=== PATIENT | male | born 2000 | race Hispanic/Latino ===

== ENCOUNTER 2020-03-03 12:22 | Emergency (ER) | payer OTHER ==
[2020-03-03 18:12] LABS: SARS-CoV-2 MS2 Positive; SARS-CoV-2 N Gene Positive; SARS-CoV-2 S Gene Positive; SARS-CoV-2 orf1ab Positive
== END 2020-03-03 13:01 | disposition home or self-care (01) ==
LOC: ERS 12:22
DX: U07.1 COVID-19 (principal); J45.909 Unspecified asthma, uncomplicated; Z87.891 Personal history of nicotine dependence
CPT/HCPCS: 87635; 99283; U0003

== ENCOUNTER 2020-08-30 13:36 | Emergency (ER) | payer OTHER, SELFPAY ==
[2020-08-30 22:33] LABS: SARS-CoV-2 MS2 Positive; SARS-CoV-2 N Gene Negative; SARS-CoV-2 S Gene Negative; SARS-CoV-2 by NAA Not Detected (NotDetected); SARS-CoV-2 orf1ab Negative
== END 2020-08-30 14:50 | disposition home or self-care (01) ==
LOC: ERS 13:36
DX: H60.92 Unspecified otitis externa, left ear (principal); Z20.828 Contact with and (suspected) exposure to other viral communicable diseases; J45.909 Unspecified asthma, uncomplicated; Z87.891 Personal history of nicotine dependence
CPT/HCPCS: 87635; 99283; U0003

== ENCOUNTER 2020-09-06 10:17 | Emergency (ER) | payer SELFPAY ==
[2020-09-06] MEDS ORDERED: Lidocaine 1% PF 5 ML VIAL ONE (12:23)
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
[2020-09-06] MEDS ORDERED: Boostrix 0.5 ML (Tdap) VIAL ONE (12:49)
== END 2020-09-06 13:29 | disposition home or self-care (01) ==
LOC: ERS 10:17
DX: S61.210A Laceration without foreign body of right index finger without damage to nail, initial encounter (principal); J45.909 Unspecified asthma, uncomplicated; Z87.891 Personal history of nicotine dependence; W20.8XXA Other cause of strike by thrown, projected or falling object, initial encounter
CPT/HCPCS: 12002; 90471; 90715

== ENCOUNTER 2021-01-18 19:09 | Emergency (ER) | payer SELFPAY ==
[2021-01-18] MEDS ORDERED: Lidocaine 1% PF 5 ML VIAL ONE (20:17)
[2021-01-18] MEDS ORDERED: cefTRIAXone\\ROCEPHIN 500 MG VIAL ONE (20:17)
[2021-01-18 20:37] LABS: Bilirubin Negative (Negative); Blood, Urine Negative (Negative); Glucose, Urine (Dipstick) Normal (Negative); Ketone, Urine Negative (Negative); Leukocyte Negative Leu/uL (Negative); Nitrite Negative (Negative); Protein, Urine (Dipstick) 10 mg/dL (Neg-Trace); Specific Gravity, Urine 1.021 (1.002-1.036); Urobilinogen Normal mg/dL (Less than 2)
[2021-01-18 20:38] LABS: Clarity Cloudy (Clear)
[2021-01-21 20:16] LABS: Chlam.trachomatis by PCR,Urine DETECTED (NotDetected)
== END 2021-01-18 20:45 | disposition home or self-care (01) ==
LOC: ERS 19:09
DX: Z20.2 Contact with and (suspected) exposure to infections with a predominantly sexual mode of transmission (principal); Z87.891 Personal history of nicotine dependence
CPT/HCPCS: 81003; 87491; 87591; 96372; 99283; J0696

== ENCOUNTER 2022-07-03 15:44 | Emergency (ER) | payer SELFPAY | END 2022-07-03 18:15 | disposition home or self-care (01) | LOC: ERS 15:44 | DX: S40.011A Contusion of right shoulder, initial encounter (principal); Z87.891 Personal history of nicotine dependence; W19.XXXA Unspecified fall, initial encounter; X50.0XXA Overexertion from strenuous movement or load, initial encounter; Y99.0 Civilian activity done for income or pay ==

== ENCOUNTER 2023-04-29 12:09 | Emergency (ER) | payer SELFPAY ==
[2023-04-29] MEDS ORDERED: Lidocaine 1% w/Epinephrine 1:100K 20 ML VIAL ONE (14:22)
[2023-04-29] MEDS ORDERED: Bacitracin 1 PK ONE (15:10)
== END 2023-04-29 16:37 | disposition home or self-care (01) ==
LOC: ERS 12:09
DX: S51.012A Laceration without foreign body of left elbow, initial encounter (principal); Z87.891 Personal history of nicotine dependence; W19.XXXA Unspecified fall, initial encounter
CPT/HCPCS: 12002

== ENCOUNTER 2023-05-12 11:33 | Emergency (ER) | payer SELFPAY ==
[2023-05-12] MEDS ORDERED: Cephalexin 250 MG CAP ONE (11:56)
[2023-05-12] MEDS ORDERED: Sulfameth/Trimethoprim DS 800-160mg TAB ONE (11:56)
== END 2023-05-12 12:47 | disposition home or self-care (01) ==
LOC: ERS 11:33
DX: S51.812D Laceration without foreign body of left forearm, subsequent encounter (principal); W31.89XD Contact with other specified machinery, subsequent encounter
CPT/HCPCS: 99282

== ENCOUNTER 2024-02-29 22:26 | Emergency (ER) | payer SELFPAY ==
[2024-02-29 23:29] LABS: #Basophils 0.04 10x3/uL (0.0-0.2); %Basophils 0.3 % (0.0-1.0); %Eosinophils 1.6 % (0.0-10.0); %Lymphocytes 23.5 % (21.0-51.0); %Monocytes 7.4 % (0.0-10.0); %Neutrophils 66.8 % (42.0-75.0); Hematocrit 35.5 % (42.0-52.0); Hemoglobin 12.2 g/dL (14.0-18.0); Mean Corpuscular HGB CONC 34.4 g/dL (32.0-36.0); Mean Corpuscular Hemoglobin 30.5 pg (27.0-31.0); Mean Corpuscular Volume 88.8 fL (78.0-98.0); Mean Platelet Volume 9.3 fL (7.4-10.4); Platelet Count 459 10x3/uL (130-400)
[2024-02-29 23:54] LABS: ALT (SGPT) 43 U/L (8-55); AST (SGOT) 30 U/L (5-34); Albumin 3.6 g/dL (3.5-5.0); Alkaline Phosphatase 89 U/L (40-110); Anion Gap 16 mmol/L (10-20); BUN (Urea Nitrogen) 19 mg/dL (8.9-20.6); Bilirubin, Total 1.1 mg/dL (0.2-1.2); Calc. Creatinine Clearance 0 mL/min (70-130); Calcium 9.7 mg/dL (7.8-10.44); Carbon Dioxide 22 mmol/L (22-29); Chloride 102 mmol/L (98-107); Estimated GFR 126; Globulin 4.2 g/dL (2.4-3.5); Glucose 96 mg/dL (70-105); Potassium 3.6 mmol/L (3.5-5.1); Protein, Total 7.8 g/dL (6.0-8.3); Sodium 136 mmol/L (136-145)
[2024-03-01] MEDS ORDERED: Ketorolac Tromethamine 30 MG (1 mL) VIAL ONE (00:06)
[2024-03-01] MEDS ORDERED: Morphine 4 MG/ML VIAL ONE (00:06)
== END 2024-03-01 00:53 | disposition home or self-care (01) ==
LOC: ERS 22:26
DX: S82.142A Displaced bicondylar fracture of left tibia, initial encounter for closed fracture (principal); X58.XXXA Exposure to other specified factors, initial encounter; Z55.6 Problems related to health literacy
CPT/HCPCS: 80053; 83605; 85025; 96374; 96375; J1885; J2270